=== PATIENT | female | born 1950 | race Two or more races ===

== ENCOUNTER 2021-08-24 09:56 | Emergency (ER) | payer MEDICARE, BC ==
--- NOTE | 2021-08-24 10:22 | ED ---
General Adult HPI - General Chief complaint: Upper Respiratory Infection Stated complaint: Covid+ Time Seen by Provider: 08/24/21 10:00 Source: patient, RN notes reviewed, old records reviewed Mode of arrival: ambulatory Limitations: no limitations - History of Present Illness Initial comments: This is a 71-year-old female presents emergency department stating she started having some upper respiratory symptoms with a slight cough on Thursday she was tested positive for COVID on and she comes in today because she like to have her monoclonal antibodies given to her. Patient states occasionally when she is coughing she feels a little bit short of breath but in general does not get short of breath. Patient denies any fever but does states she has some achiness. Patient denies chest pain or palpitations. Patient denies any abdominal pain patient denies nausea vomiting diarrhea. - Related Data Allergies Allergy/AdvReac Type Severity Reaction Status Date / Time Iodinated Contrast Media Allergy Swelling Verified 08/24/21 10:04 iodine Allergy Rash/Hives Verified 08/24/21 10:04 Review of Systems ROS Statement: Those systems with pertinent positive or pertinent negative responses have been documented in the HPI. ROS Other: All systems not noted in ROS Statement are negative. Past Medical History Past Medical History: Hyperlipidemia, Myocardial Infarction (IN) General Exam - General Exam Comments Initial Comments: GENERAL: Patient is well-developed and well-nourished. Patient is nontoxic and well-hydrated and is in no acute distress. ENT: Neck is soft and supple. No significant lymphadenopathy is noted. Oropharynx is clear. Moist mucous membranes. Neck has full range of motion without eliciting any pain. There is no thyroid enlargement and no masses were felt. EYES: The sclera were anicteric and conjunctiva were pink and moist. Extraocular movements were intact and pupils were equal round and reactive to light. Eyelids were unremarkable. PULMONARY: Unlabored respirations. Good breath sounds bilaterally. No audible rales rhonchi or wheezing was noted. CARDIOVASCULAR: There is a regular rate and rhythm without any murmurs gallops or rubs. Femoral pulses are equal bilaterally ABDOMEN: Soft and nontender with normal bowel sounds. No palpable organomegaly was noted. There is no palpable pulsatile mass. SKIN: Skin is clear with no lesions or rashes and otherwise unremarkable. NEUROLOGIC: Patient is alert and oriented x3. Cranial nerves II through XII are grossly intact. Motor and sensory are also intact. Normal speech, volume and content. Symmetrical smile. Cerebellar exam grossly intact. MUSCULOSKELETAL: Normal extremities with adequate strength and full range of motion. No lower extremity swelling or edema. No calf tenderness. LYMPHATICS: No significant lymphadenopathy is noted PSYCHIATRIC: Normal psychiatric evaluation. Normal interpersonal interactions appears functionally intact in deals appropriately with others. No signs of depression. No signs of anxiety. No delusions. No hallucinations. Limitations: no limitations Course Vital Signs 08/24/21 09:57 Temperature 97.9 F Pulse Rate 89 Respiratory 19 Rate Blood Pressure 147/97 O2 Sat by Pulse 99 Oximetry Medical Decision Making - Medical Decision Making Patient is going to receive monoclonal antibodies. Disposition Clinical Impression: COVID-19 Disposition: HOME SELF-CARE Instructions (If sedation given, give patient instructions): Coronavirus Disease 2019 (COVID-19) Additional Instructions: Patient should return to the emergency department as any difficulty breathing shortness of breath. Is patient prescribed a controlled substance at d/c from ED?: No Referrals: Reece Denney MD [Primary Care Provider] - 1-2 days Time of Disposition: 10:21
[2021-08-24] MEDS ORDERED: CASIRIVIMAB/IMDEVIMAB (EUA) 1,200 MG in SODIUM CHLORIDE 0.9% 100 ML IVPB ONE (10:30)
[2021-08-24] MEDS ORDERED: SODIUM CHLORIDE 0.9% 50 ML IVPB ONE (11:00)
[2021-08-24 11:23] VITALS: RESP 18
[2021-08-24 13:08] VITALS: BP 145/81; PULSE 80; TEMP 98.3
== END 2021-08-24 13:01 | disposition home or self-care (01) ==
LOC: EC 09:56
DX: U07.1 COVID-19 (principal); I25.2 Old myocardial infarction; Z88.8 Allergy status to other drugs, medicaments and biological substances
CPT/HCPCS: 99283; 96365; Q0243